=== PATIENT | female | born 1990 | race African-American/Black ===

== ENCOUNTER 2024-06-20 17:05 | Emergency (ER) | payer MEDICARE, OTHER ==
[~2024-06-20] VITALS: Ht 160 cm; Wt 107.0 kg
[2024-06-20 17:48] VITALS: PULSE 96; RESP 16; O2SAT 96
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
[2024-06-20] MEDS: HYDROmorphone HCL 2 MG/ML VL/or syr IM ONE (18:30)
[2024-06-20 18:42] LABS: Basophils # (auto) 0 10 ^3/uL (0-0.2); Basophils % (auto) 0.4 % (0.0-2.0); Eosinophils # (auto) 0.1 10 ^3/uL (0-0.8); Eosinophils % (auto) 1.5 % (0.0-7.0); Hematocrit 36.4 % (36.0-46.0); Hemoglobin 12.4 g/dL (12.2-16.2); Lymphocytes # (auto) 1.3 10 ^3/uL (0.4-5.4); Lymphocytes % (auto) 15.6 % (10.0-50.0); Mean Corpuscular Hemoglobin 28.4 pg (28.0-32.0); Mean Corpuscular Hgb Conc. 34.1 g/dL (32.0-36.0); Mean Corpuscular Volume 83.3 fL (80.0-100.0); Monocytes # (auto) 1.4 10 ^3/uL (0-1.3); Monocytes % (auto) 16.6 % (0.0-12.0); Neutrophils # (auto) 5.5 10 ^3/uL (1.6-8.6); Neutrophils % (auto) 65.9 % (37.0-80.0); Nucleated Red Blood Cells % 0.1 %; Platelet Count (auto) 401 10^3/uL (140-450); Red Blood Cells 4.36 10^6/uL (4.0-5.20); Red Cell Distribution Width 14.8 % (11.8-14.3); White Blood Cell 8.3 10^3/uL (4.4-10.8)
[2024-06-20 18:55] LABS: Alanine Aminotransferase 12 U/L (7-40); Albumin 4.3 g/dL (3.2-4.8); Alkaline Phosphatase 79 U/L (46-116); Anion Gap 6 (5-15); BUN/Creatinine Ratio 5.4 (10.0-20.0); Bilirubin, Total 0.3 mg/dL (0.2-1.0); Calcium 9.6 mg/dL (8.7-10.4); Carbon Dioxide 27 mmol/L (20-31); Glucose 82 mg/dL (74-106); Sodium 141 mmol/L (136-145); Total Protein 7.1 g/dL (5.7-8.2)
[2024-06-20 19:03] LABS: Aspartate Aminotransferase 13 U/L (13-40); Blood Urea Nitrogen 7 mg/dL (9-23); Chloride 108 mmol/L (98-107); Potassium 3.3 mmol/L (3.5-5.1)
[2024-06-20] MEDS: HYDROmorphone HCL 2 MG/ML VL/or syr IV ONE (23:13)
[2024-06-20] MEDS: IOHEXOL 300 MG/ML 100ML BOTTLE IJ ONE (23:36)
[2024-06-21] VITALS: BP 106/69; PULSE 80; RESP 19; TEMP 97.7; O2SAT 99
--- NOTE | 2024-06-21 00:01 | DVH ---
Procedure: CT CHEST WITH CONTRAST Reason for study/Clinical History: Evaluation of bilateral mastectomy Comparison Study: None available at time of dictation. Exam Date: 06/20/2024 11:22 PM Radiation Dose Information: CT Dose: CTDI volume is 31 mGy. Dose-length product is 1250 mGy*cm Contrast: Type of contrast: Omni 300 Contrast inject: 100 Contrast wasted:0 TECHNIQUE: After the uneventful administration of intravenous contrast intravenously, CT imaging was performed through the chest. Coronal and sagittal reformations were performed by the technologist. FINDINGS: Lower Neck: Visualized portions of the thyroid gland are unremarkable. Aorta and Vasculature: Normal caliber of thoracic aorta. Lymph Nodes: Prominent right axillary lymph nodes, likely reactive. Mediastinum: Heart size is normal. There is no pericardial effusion. The esophagus is unremarkable. Lungs: No focal consolidation, pleural effusion or significant pneumothorax. No suspicious pulmonary nodule or mass. Musculoskeletal: No acute osseous abnormality. Upper abdomen: Status post bilateral mastectomy with bilateral breast fluid collections measuring up to 18 cm on the right and up to 15 cm in the left. There is a drainage catheter within the right almaz st fluid collection. IMPRESSION: 1. Status post bilateral mastectomy with bilateral breast fluid collections measuring up to 18 cm on the right and up to 15 cm in the left. There is a drainage catheter within the right breast fluid col lection. 2. No acute pulmonary disease. 3. All CT scans at this medical facility are performed using dose modulation techniques as appropriat e to a performed exam including the following: Automated exposure control was utilized; adjustment of the MA and/or KV according to patient size; and use of iterative reconstruction technique.
[2024-06-21] MEDS ORDERED: OXY5T PO (00:24)
== END 2024-06-21 00:35 | disposition home or self-care (01) ==
LOC: ER 17:05
DX: G89.18 Other acute postprocedural pain (principal); N64.89 Other specified disorders of breast; Z90.13 Acquired absence of bilateral breasts and nipples; Z91.018 Allergy to other foods
CPT/HCPCS: 36415; 71260; 80053; 83605; 85025; 96372; 96374; 99285; J1171; Q9967

== ENCOUNTER 2024-08-11 11:14 | Emergency (ER) | payer MEDICARE, OTHER ==
[~2024-08-11] VITALS: Ht 160 cm; Wt 113.1 kg
[~2024-08-11 11:14] MED LIST: OXY5T PO
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
[2024-08-11 14:23] VITALS: TEMP 98.3; O2SAT 97
[2024-08-11] MEDS: TETRACAINE HCL 0.5% OPTH(EYE) SOLN 4ML EACHEYE ONE (15:22)
[2024-08-11] MEDS: FLUORESCEIN SOD OPTH TEST STRIP EACHEYE ONE (15:22)
[2024-08-11] MEDS: MORPHINE SULFATE 4 MG/ML SYR/VIAL IM ONE (15:27)
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
[2024-08-11 16:07] VITALS: BP 142/89; PULSE 78; RESP 16
== END 2024-08-11 16:56 | disposition left against medical advice (07) ==
LOC: ER 11:26
DX: S02.85XA Fracture of orbit, unspecified, initial encounter for closed fracture (principal); S02.2XXA Fracture of nasal bones, initial encounter for closed fracture; T79.7XXA Traumatic subcutaneous emphysema, initial encounter; I10 Essential (primary) hypertension; H53.2 Diplopia; J45.909 Unspecified asthma, uncomplicated; Z88.6 Allergy status to analgesic agent; X58.XXXA Exposure to other specified factors, initial encounter; Y93.89 Activity, other specified; Y92.89 Other specified places as the place of occurrence of the external cause; Y99.8 Other external cause status
CPT/HCPCS: 70486; 96372; 99285; J2270